=== PATIENT | male | born 1960 | race Caucasian/White ===

== ENCOUNTER → 2019-02-02 | Outpatient (REF) | payer OTHER ==
[2019-02-02 14:52] LABS: % LABILE ALKALINE PHOSPHATASE 51.9 %
== END ==
LOC: M LAB REF 11:44
PROVIDERS: ATTEND Family Medicine
DX: R74.8 Abnormal levels of other serum enzymes (principal)

== ENCOUNTER → 2019-12-11 | Outpatient (CLI) | payer OTHER | LOC: M LABSMTC 10:03 | PROVIDERS: ATTEND Internal Medicine Gastroenterology | DX: Z20.828 Contact with and (suspected) exposure to other viral communicable diseases (principal) ==

== ENCOUNTER 2019-12-12 12:06 | Day surgery (SDC) | payer OTHER ==
[2019-12-12] MEDS ORDERED: CIPROFLOXACIN/D5W 400 MG/200 ML BAG (J0744) As Ordered ONE (12:41)
[2019-12-12] MEDS ORDERED: CIPROFLOXACIN/D5W 400 MG/200 ML BAG (J0744) ONE (12:41)
[2019-12-12] MEDS ORDERED: LIDOCAINE 2% 100MG/5ML SDV (FOR ANES.) As Ordered ONE (12:43)
[2019-12-12] MEDS ORDERED: MIDAZOLAM INJ 2MG/2ML VIAL (J2250 PER 1MG) As Ordered ONE (12:43)
[2019-12-12] MEDS ORDERED: ROCURONIUM BROMIDE 50 MG/5 ML VIAL As Ordered ONE (12:43)
[2019-12-12] MEDS ORDERED: propofoL 200 MG/20 ML VIAL As Ordered ONE (12:43)
[2019-12-12] MEDS ORDERED: ONDANSETRON 4MG/2ML VIAL As Ordered ONE (12:43)
[2019-12-12] MEDS ORDERED: METOCLOPRAMIDE INJ 10MG/2ML VIAL (J2765 PER 1) As Ordered ONE (12:43)
[2019-12-12] MEDS ORDERED: fentaNYL 100 MCG/2 ML INJECTION (J3010) As Ordered ONE ×3 (12:44→15:38)
[2019-12-12] MEDS ORDERED: ISOVUE-300 61% 50ML VIAL As Ordered ONE (12:51)
[2019-12-12] MEDS ORDERED: fentaNYL 100 MCG/2 ML INJECTION (J3010) ONE ×2 (15:09→15:38)
--- NOTE | 2020-01-16 11:26 | ROOR ---
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 Procedure: Pre-Anesthesia Assessment: - Prior to the procedure, a History and Physical was performed, and patient medications and allergies were reviewed. The patient is competent. The risks and benefits of the procedure and the sedation options and risks were discussed with the patient. All questions were answered and informed consent was obtained. Patient identification and proposed procedure were verified by the physician, the nurse and the anesthesiologist in the procedure room. Mental Status Examination: alert and oriented. Airway Examination: normal oropharyngeal airway and neck mobility. Respiratory Examination: clear to auscultation. CV Examination: normal. Prophylactic Antibiotics: The patient does not require prophylactic antibiotics. Prior Anticoagulants: The patient has taken no previous anticoagulant or antiplatelet agents. ASA Grade Assessment: II - A patient with mild systemic disease. After reviewing the risks and benefits, the patient was deemed in satisfactory condition to undergo the procedure. The anesthesia plan was to use monitored anesthesia care (MAC). Immediately prior to administration of medications, the patient was re-assessed for adequacy to receive sedatives. The heart rate, respiratory rate, oxygen saturations, blood pressure, adequacy of pulmonary ventilation, and response to care were monitored throughout the procedure. The physical status of the patient was re-assessed after the procedure. The Duodenoscope was introduced through the mouth, and advanced to the duodenum and used to inject contrast into the bile duct. The ERCP was accomplished without difficulty. The patient tolerated the procedure well. Findings: The director of graduate admissions film was normal. The esophagus was successfully intubated under direct vision. The scope was advanced from the mouth to the duodenum. The pharynx, larynx and associated structures, as well as the upper GI tract, were normal. The scope was passed under direct vision through the upper GI tract. The major papilla was congested. The major papilla was ulcerated. A 0.035 inch x 260 cm straight Hydra Jagwire was passed into the biliary tree. The bile duct was then deeply cannulated over the guidewire. Contrast was injected. I personally interpreted the bile duct images. Ductal flow of contrast was adequate. Image quality was adequate. Contrast extended to the entire biliary tree. The main bile duct, left main hepatic duct and right main hepatic duct were diffusely dilated, with extrinsic compression causing an obstruction. The largest diameter was 15 mm. The lower third of the main bile duct was completely obstructed by what appeared to be a mass. Cells for cytology were obtained by brushing in the lower third of the main bile duct. Biopsy was performed in the ampulla through the ERCP scope with a cold forceps for histology. One 10 mm by 6 cm covered metal stent was placed into the common bile duct. Bile, necrotic tissue and sludge flowed through the stent. The stent was in good position. Occlusion cholangiogram at the end of the procedure did not show any residual filling defects. Pancreatic duct was neither cannulated nor opacified. Impression: - The major papilla appeared congested. - The major papilla appeared to be ulcerated. - Biopsy was performed in the ampulla. - A biliary tract obstruction secondary to what appeared to be a mass was found in the lower third of the main duct. - The entire main bile duct, left main hepatic duct and right main hepatic duct were dilated, with extrinsic compression causing an obstruction. - Cells for cytology obtained in the lower third of the main duct. - One covered metal stent was placed into the common bile duct. Recommendation: - The patient will be observed post-procedure, until all discharge criteria are met. - Patient has a contact number available for emergencies. The signs and symptoms of potential delayed complications were discussed with the patient. Return to normal activities tomorrow. Written discharge instructions were provided to the patient. - Avoid aspirin and nonsteroidal anti-inflammatory medicines. - Clear liquid diet for 1 day, then advance as tolerated to low fat diet. - Await cytology results and await path results. - Refer to an oncologist as previously scheduled. - Telephone GI clinic for pathology results in 1 week. - Return to GI clinic if persistent symptoms or new symptoms. - Return to primary care physician. Lorenzo Jean Baptiste MD Lorenzo Jean Baptiste MD 12/12/2019 2:51:42 PM Electronically signed by Lorenzo Jean Baptiste MD Number of Addenda: 0 Note Initiated On: 12/12/2019 1:14 PM Estimated Blood Loss: Estimated blood loss was minimal.
--- NOTE | 2020-01-29 07:55 | REP ---
ERCP: 46 seconds of fluoroscopy time is reported. FINDINGS: A sequence of 25 last image hold fluoroscopically obtained spot radiographs of the right upper quadrant of the abdomen document endoscopic cannulation, contrast injection and stenting of the common bile duct. MTDD
== END 2019-12-12 16:25 | disposition home or self-care (01) ==
LOC: M SDC 12:06
PROVIDERS: ATTEND Internal Medicine Gastroenterology
DX: K83.1 Obstruction of bile duct (principal); C25.0 Malignant neoplasm of head of pancreas; K83.8 Other specified diseases of biliary tract
CPT/HCPCS: 43261; 43274; 74330; 88108; 88307; C1876; J0744; J2250; J2405; J2765; J3010; Q9967

== ENCOUNTER → 2019-12-21 | Outpatient (CLI) | payer OTHER ==
[~2019-12-21] MED LIST: ISOVUE-370 76% 100ML VIAL As Ordered ONE
--- NOTE | 2020-01-29 07:56 | REP ---
HISTORY: Pancreatic carcinoma. COMPARISON: No comparison chest CT study. Comparison abdomen and pelvis CT study 12/06/2019, [facility]. CT CONTRAST DOSE: 75 mL of intravenous Isovue-[address] FINDINGS: The lung carrillo are clear. No pulmonary nodule or mass lesion is observed. No infiltrate or atelectasis is seen. No pleural or pericardial effusion is apparent. No hilar or mediastinal mass or adenopathy is seen. There is Postprocedure pneumobilia noted in the right upper quadrant of the abdomen. There are multiple hepatic metastatic nodules scattered throughout the liver, which are similar in appearance to the 12/06/2019 images from [facility]. These are predominantly small. There is retroperitoneal and retrocrural, as well as celiac axis lymphadenopathy visible in the upper abdomen. Bone window settings show no bony destructive lesion. A biliary stent is noted in the right upper quadrant. IMPRESSION: No evidence of intrathoracic metastatic disease. Metastatic disease is seen in the liver and in the upper abdominal and retroperitoneal lymph nodes. MTDD
== END ==
LOC: M RAD 09:50
PROVIDERS: ATTEND Internal Medicine Medical Oncology
DX: C25.9 Malignant neoplasm of pancreas, unspecified (principal)
CPT/HCPCS: 71260; Q9967

== ENCOUNTER 2020-04-08 20:13 | Inpatient (IN) | payer OTHER ==
[~2020-04-08] VITALS: Ht 182.9 cm; Wt 49.5 kg
[2020-04-08] MEDS ORDERED: SCOPOLAMINE 1MG TRANSDERMAL PATCH TOP PRN (21:00)
--- NOTE | 2020-04-08 22:05 | HPEPDOC ---
[facility] Medical History & Physical Date of Admission Apr 08, 2020 Date of Service: Apr 08, 2020 History and Physical Chief complaint: Presented to the hospital with intractable nausea and vomiting History of present illness: Patient is a 6-year-old male with a history of metastatic pancreatic adenocarcinoma and has been on comfort measures since March 06 while at home. Patient has been having intractable nausea and vomiting that is uncontrolled with Zofran by mouth and per rectum. Patient remains comfort measures and has been partial hospital for symptomatically control of his nausea and vomiting. Discussed with patient and his at the bedside. Currently, would like to remain comfort measures and have his symptoms controlled here. Past Medical History: Metastatic pancreatic adenocarcinoma Past Surgical History: Hernia operation Allergies: See below Medications: See below Family History: - Reviewed and noncontributory Social History: - Denies the use of tobacco or illicit drugs; reports social alcohol use. The past - Lives Review of Systems: 10 point review of systems complete, all negative otherwise stated in HPI Physical exam: - Vitals (Not completed) - General: Lying in bed, No acute distress, appears drowsy - Full exam not completed Labs: See below Imaging: See below EKG: See below Assessment and Plan: Comfort measures Intractable nausea and vomiting Metastatic pancreatic adenocarcinoma Assessment and Plan: - Will continue with comfort measures only at this time - Will continue with pain control, anxiety relief and IV antiemetics - Will adjust therapy based on symptom control Code status: - DNR / DNI - GEOSCIENCE SPECIALIST Laboratory Data Labs 24H Laboratory Tests 2 04/08/20 21:23: Allergies Coded Allergies: No Known Allergies (Unverified , 04/08/20) FLOYD PITTS MD Apr 08, 2020 22:05
[2020-04-08] MEDS: ONDANSETRON 4MG/2ML VIAL IV PRN (22:39)
[2020-04-08] MEDS: MORPHINE 2 MG/ML 1ML VIAL (J2270) IV PRN (22:39)
[2020-04-08] MEDS ORDERED: METH5TA PO (23:19)
[2020-04-08] MEDS ORDERED: MORP1SOL PO (23:20)
[2020-04-08] MEDS ORDERED: DEXA4TA PO (23:20)
[2020-04-08] MEDS ORDERED: HYOS0.1214 PO (23:20)
[2020-04-08] MEDS ORDERED: SCOP1PAT2 TOP (23:20)
[2020-04-08] MEDS ORDERED: ALPR0.5T3 PO (23:20)
[2020-04-08] MEDS ORDERED: METO10TA2 PO (23:20)
[2020-04-08] MEDS ORDERED: ONDA8TAB8 PO (23:20)
[2020-04-08] MEDS ORDERED: PROC25SU24 PR (23:20)
[2020-04-09] MEDS: LORazepam 2 MG/ML VIAL IV PRN ×2 (01:42→13:51)
[2020-04-09] MEDS: ONDANSETRON 4MG/2ML VIAL IV PRN ×2 (05:50→13:51)
[2020-04-09] MEDS: MORPHINE 2 MG/ML 1ML VIAL (J2270) IV PRN ×3 (07:51→19:42)
[2020-04-09] MEDS ORDERED: PROMETHAZINE INJ 25 MG/ML VIAL (J2550) IV PRN (08:00)
[2020-04-09] MEDS ORDERED: FLUBLOK(EGG FREE)(QUAD)INFLUENZA VACC 0.5ML SYRINGE 18YRS & OLDER IM ONE (09:00)
[2020-04-09] MEDS ORDERED: PROCHLORPERAZINE 10MG/2ML VIAL (J0780 PER 1) IV PRN ×2 (09:15→14:31)
[2020-04-09] MEDS: METOCLOPRAMIDE INJ 10MG/2ML VIAL (J2765 PER 1) IV SCH ×3 (09:40→21:38)
--- NOTE | 2020-04-09 12:45 | IPNPDOC ---
Date Seen The patient was seen on 04/09/20. Progress Note SUBJECTIVE: Pain medications were changed according to Hospice nurse, pharmacy. Appeared very lethargic but responsive with stimulation. His was at the bedside. Hospice is involved. OBJECTIVE: PHYSICAL EXAMINATION- full exam is not completed: VITAL SIGNS: Not taking due to CRATE OPENER status GENERAL: Lethargic, responsive to loud verbal stimulation LABORATORY DATA, IMAGING STUDIES, MICROBIOLOGY: No longer doing labs ASSESSMENT: 60 yr old male with metastatic pancreatic adenocarcinoma admitted for intractable N/V, uncontrolled pain on CRATE OPENER. PLAN: C/w CRATE OPENER status. Hospice has seen and made suggestions on pain, antianxiety and antiemetic regimen changes. Hospice to follow while inpatient. DISPOSITION: Overall poor prognosis. His was updated today by Hospice that he will unlikely return home due to how much he has decompensated. Hospice is following closely. VS, I&O, 24H, Fishbone Vital Signs/I&O Vital Signs Date Time Temp Pulse Resp B/P (MAP) Pulse Ox O2 Delivery O2 Flow Rate FiO2 04/09/20 07:51 14 I&O- Last 24 Hours up to 6 AM 04/09/20 06:00 Intake Total 0 ml Output Total 0 ml Balance 0 ml Laboratory Data 24H LABS Laboratory Tests 2 04/08/20 21:23: Coronavirus (COVID-19)(PCR) NEGATIVE Reba Cordova MD Apr 09, 2020 12:45
[2020-04-09] MEDS: MORPHINE 4 MG/ML 1ML VIAL/SYRINGE (J2270) IV SCH ×3 (13:00→21:39)
[2020-04-09] MEDS ORDERED: LORazepam 2 MG/ML VIAL As Ordered ONE ×2 (13:44→16:46)
[2020-04-09] MEDS: dexameTHASONE 4 MG/ML 1ML VIAL (J1100 PER 1MG) IV SCH (13:51)
[2020-04-09] MEDS: LORazepam 2 MG/ML VIAL IV SCH ×2 (16:54→21:39)
[2020-04-09] MEDS ORDERED: dexameTHASONE 4 MG/ML 1ML VIAL (J1100 PER 1MG) IV ONE (17:00)
[2020-04-10] MEDS: PROCHLORPERAZINE 10MG/2ML VIAL (J0780 PER 1) IV PRN ×2 (07:47→14:58)
[2020-04-10] MEDS: dexameTHASONE 4 MG/ML 1ML VIAL (J1100 PER 1MG) IV SCH ×2 (08:00→15:00)
[2020-04-10] MEDS: LORazepam 2 MG/ML VIAL IV SCH ×3 (08:01→19:49)
[2020-04-10] MEDS: METOCLOPRAMIDE INJ 10MG/2ML VIAL (J2765 PER 1) IV SCH ×3 (08:01→19:49)
[2020-04-10] MEDS: MORPHINE 4 MG/ML 1ML VIAL/SYRINGE (J2270) IV SCH ×4 (08:02→19:49)
[2020-04-10] MEDS: SCOPOLAMINE 1MG TRANSDERMAL PATCH TOP SCH (08:03)
--- NOTE | 2020-04-10 10:48 | IPNPDOC ---
Date Seen The patient was seen on 04/10/20. Progress Note SUBJECTIVE: Morphine and ativan increased due to increased discomfort inbetween receiving doses. Was lethargic but responsive with stimulation this AM. His son was at bedside. OBJECTIVE: PHYSICAL EXAMINATION- full exam is not completed: VITAL SIGNS: Not taking due to STUDY ABROAD ADVISOR status GENERAL: Lethargic, unresponsive to loud verbal stimulation after receiving pain medications. LABORATORY DATA, IMAGING STUDIES, MICROBIOLOGY: No longer doing labs ASSESSMENT: 60 yr old male with metastatic pancreatic adenocarcinoma admitted for intractable N/V, uncontrolled pain on STUDY ABROAD ADVISOR. CURRENT DIAGNOSES: 1. Metastatic pancreatic adenocarcinoma to liver, upper abd, retroperitoneal LN 2. Failure to thrive 3. Pain 2/2 to metastatic disease 4. Intractable n/v 2/2 to metastatic disease PLAN: C/w STUDY ABROAD ADVISOR status. Hospice has seen and made suggestions on pain, antianxiety and antiemetic regimen changes. Adjusted pain medications further due to increased pain, nausea. ALC status placed today DISPOSITION: Overall poor prognosis. Unlikely that patient will return home due to how much he has decompensated. Hospice is following. VS, I&O, 24H, Fishbone Vital Signs/I&O Vital Signs Date Time Temp Pulse Resp B/P (MAP) Pulse Ox O2 Delivery O2 Flow Rate FiO2 04/10/20 08:02 18 Room Air I&O- Last 24 Hours up to 6 AM 04/10/20 05:59 Intake Total 0 ml Output Total 0 ml Balance 0 ml Current Medications Current Medications Medications (Trade) Dose Ordered Sig/Bony Route PRN Reason Start Time Stop Time Status Last Admin Dose Admin Dexamethasone (Decadron) 8 mg Q24H IV 04/09/20 12:00 04/09/20 13:51 Dexamethasone (Decadron) 8 mg Q24H IV 04/10/20 08:00 04/10/20 08:00 Home Med (Med Rec Complete!) ASDIRECTED XX 04/08/20 23:30 04/08/20 23:22 DC Lorazepam (Ativan) 1 mg Q2HP PRN IV ANXIETY 04/08/20 21:00 04/10/20 10:38 DC 04/09/20 13:51 Lorazepam (Ativan) 1 mg TID IV 04/09/20 16:00 04/10/20 08:01 Lorazepam (Ativan) 2 mg Q2HP PRN IV ANXIETY 04/10/20 10:45 UNV Metoclopramide HCl (REGLAN INJection) 10 mg TID IV 04/09/20 09:00 04/10/20 08:01 Morphine Sulfate (Morphine Sulfate Inj) 2 mg Q2H PRN IV SEVERE PAIN (PS 8-10) 04/08/20 21:00 04/09/20 09:14 DC 04/09/20 07:51 Morphine Sulfate (Morphine Sulfate Inj) 3 mg Q2H PRN IV SEVERE PAIN (PS 8-10) 04/09/20 11:00 04/10/20 10:38 DC 04/09/20 19:42 Morphine Sulfate (Morphine Sulfate Inj) 3 mg QID IV 04/09/20 13:00 04/10/20 10:38 DC 04/10/20 08:02 Morphine Sulfate (Morphine Sulfate Inj) 4 mg Q2H PRN IV SEVERE PAIN (PS 8-10) 04/10/20 11:00 UNV Morphine Sulfate (Morphine Sulfate Inj) 4 mg QID IV 04/10/20 13:00 UNV Ondansetron HCl (ZOFRAN INJection) 4 mg Q6HP PRN IV NAUSEA OR VOMITING 04/08/20 21:00 04/09/20 13:51 Prochlorperazine (Compazine) 10 mg Q4HP PRN IV VOMITING 04/09/20 14:32 04/10/20 07:47 Prochlorperazine (Compazine) 10 mg Q8HP PRN IV VOMITING 04/09/20 14:31 04/09/20 14:32 DC Prochlorperazine (Compazine) 25 mg Q8HP PRN IV VOMITING 04/09/20 09:15 04/09/20 14:31 DC Promethazine HCl (PHENERGAN INJection) 25 mg Q8HP PRN IV NAUSEA OR VOMITING 04/09/20 08:00 04/09/20 09:14 DC Scopolamine (Scopolamine) 1 mg Q2D TOP 04/10/20 09:00 04/10/20 08:03 Scopolamine (Scopolamine) 1 mg Q3DP PRN TOP EXCESSIVE SECRETIONS 04/08/20 21:00 04/09/20 09:13 DC Allergies Coded Allergies: No Known Allergies (Unverified , 04/08/20) Reba Cordova MD Apr 10, 2020 10:48
[2020-04-10] MEDS: LORazepam 2 MG/ML VIAL IV PRN ×3 (11:01→21:56)
[2020-04-10] MEDS: ONDANSETRON 4MG/2ML VIAL IV PRN (11:01)
[2020-04-10] MEDS: MORPHINE 2 MG/ML 1ML VIAL (J2270) IV PRN ×3 (11:03→21:56)
[2020-04-11] MEDS: PROCHLORPERAZINE 10MG/2ML VIAL (J0780 PER 1) IV PRN ×3 (00:37→14:31)
[2020-04-11] MEDS: LORazepam 2 MG/ML VIAL IV PRN ×8 (00:38→19:47)
[2020-04-11] MEDS: MORPHINE 2 MG/ML 1ML VIAL (J2270) IV PRN ×7 (02:58→19:47)
[2020-04-11] MEDS: dexameTHASONE 4 MG/ML 1ML VIAL (J1100 PER 1MG) IV SCH ×2 (08:29→11:42)
[2020-04-11] MEDS: MORPHINE 4 MG/ML 1ML VIAL/SYRINGE (J2270) IV SCH ×4 (09:00→21:00)
[2020-04-11] MEDS: LORazepam 2 MG/ML VIAL IV SCH ×3 (09:00→21:00)
[2020-04-11] MEDS: METOCLOPRAMIDE INJ 10MG/2ML VIAL (J2765 PER 1) IV SCH ×3 (09:00→21:00)
[2020-04-11] MEDS: ONDANSETRON 4MG/2ML VIAL IV PRN ×2 (11:41→17:36)
[2020-04-12] MEDS: MORPHINE 2 MG/ML 1ML VIAL (J2270) IV PRN ×5 (02:54→19:15)
[2020-04-12] MEDS: MORPHINE 4 MG/ML 1ML VIAL/SYRINGE (J2270) IV SCH ×4 (08:22→21:28)
[2020-04-12] MEDS: METOCLOPRAMIDE INJ 10MG/2ML VIAL (J2765 PER 1) IV SCH ×3 (08:22→21:28)
[2020-04-12] MEDS: LORazepam 2 MG/ML VIAL IV PRN ×6 (08:22→19:15)
[2020-04-12] MEDS: dexameTHASONE 4 MG/ML 1ML VIAL (J1100 PER 1MG) IV SCH ×2 (08:22→12:35)
[2020-04-12] MEDS: LORazepam 2 MG/ML VIAL IV SCH ×3 (09:00→21:29)
[2020-04-12] MEDS: SCOPOLAMINE 1MG TRANSDERMAL PATCH TOP SCH (09:04)
[2020-04-13] MEDS: MORPHINE 2 MG/ML 1ML VIAL (J2270) IV PRN ×7 (00:12→18:32)
[2020-04-13] MEDS: LORazepam 2 MG/ML VIAL IV PRN ×7 (00:13→18:32)
[2020-04-13] MEDS: ONDANSETRON 4MG/2ML VIAL IV PRN (02:22)
[2020-04-13] MEDS: METOCLOPRAMIDE INJ 10MG/2ML VIAL (J2765 PER 1) IV SCH ×2 (09:10→16:04)
[2020-04-13] MEDS: LORazepam 2 MG/ML VIAL IV SCH ×2 (09:10→16:00)
[2020-04-13] MEDS: dexameTHASONE 4 MG/ML 1ML VIAL (J1100 PER 1MG) IV SCH ×2 (09:11→12:23)
[2020-04-13] MEDS: MORPHINE 4 MG/ML 1ML VIAL/SYRINGE (J2270) IV SCH ×3 (09:11→16:05)
--- NOTE | 2020-04-14 17:41 | DS.PDOC ---
Discharge Summary General Date of Admission Apr 08, 2020 at 21:04 Date of Discharge 04/13/20 Attending Physician: Reba Cordova MD Discharge Summary THIS IS A SUMMARY HPI: Patient is a 60-year-old male with a history of metastatic pancreatic adenocarcinoma that has been on home Hospice, comfort measures since March 06, 2020. He was brought into the ER on 04/08/20 due to having intractable nausea and vomiting that is uncontrolled with Zofran by mouth and per rectum. His family was informed that patient likely will be needing IV comfort pain meds, as oral has not been feasible and it has not been keeping him comfortable. The patient was admitted as RESEARCH ASST for end of life care. HOSPITAL COURSE: Hospice was consulted to help with pain medications during this stay. Patient was started on morphine ATC and PRN, ativan ATC and PRN along with several antiemetics, scopalamine. His medications did need adjusting one time to help ease his comfort. ON 04/13/20 patient was found to not have a pulse. Dr. Duff pronounced TOB 19:14. LABORATORY DATA, IMAGING STUDIES, MICROBIOLOGY: No longer doing labs ASSESSMENT: 60 yr old male with metastatic pancreatic adenocarcinoma admitted for intractable N/V, uncontrolled pain on RESEARCH ASST. DIAGNOSES at time of : 1. Metastatic pancreatic adenocarcinoma to liver, upper abd, retroperitoneal LN 2. Failure to thrive 3. Pain 2/2 to metastatic disease 4. Intractable n/v 2/2 to metastatic disease 5. Protein calorie malnutrition, severe TIME SPENT ON DISCHARGE: Less than 30 minutes. Vital Signs/I&Os Vital Signs Date Time Temp Pulse Resp B/P (MAP) Pulse Ox O2 Delivery O2 Flow Rate FiO2 04/12/20 19:25 16 Room Air I&O- Last 24 Hours up to 6 AM 04/14/20 06:00 Intake Total 0 ml Output Total 0 ml Balance 0 ml Discharge Medications Scheduled Dexamethasone (Dexamethasone) 4 Mg Tablet, 8 MG PO BID, (Reported) Methadone HCl (Methadone HCl) 5 Mg Tablet, 5 MG PO Q8H, (Reported) Metoclopramide HCl (Metoclopramide HCl) 10 Mg Tablet, 10 MG PO TID, (Reported) Scopolamine (Transderm-Scop) 1 Each Patch.td.3, 1.5 MG TOP Q2D, (Reported) Scheduled PRN Alprazolam (Alprazolam) 0.5 Mg Tablet, 0.5 MG PO Q2H PRN for ANXIETY, (Reported) Hyoscyamine Sulfate (Hyoscyamine Sulfate) 0.125 Mg Tab.rapdis, 0.125 MG PO Q4H PRN for TERMINAL SECRETIONS, (Reported) Morphine Sulfate (Morphine Sulfate Concentrate) 100 Mg/5 Ml Solution, 0.5 ML PO Q2H PRN for PAIN/DYSPNEA, (Reported) Ondansetron (Ondansetron Odt) 8 Mg Tab.rapdis, 8 MG PO Q6H PRN for NAUSEA, (Reported) Prochlorperazine (Prochlorperazine) 25 Mg Supp.rect, 25 MG [place] Q8H PRN for NAUSEA OR VOMITING, (Reported) Allergies Coded Allergies: No Known Allergies (Unverified , 04/08/20) Reba Cordova MD Apr 14, 2020 17:41
== END 2020-04-13 19:14 | disposition expired | DRG 951 ==
LOC: M MS5PR 21:04
PROVIDERS: ADMIT Internal Medicine; ATTEND Internal Medicine
DX: Z51.5 Encounter for palliative care (principal); E43 Unspecified severe protein-calorie malnutrition; C25.9 Malignant neoplasm of pancreas, unspecified; C78.7 Secondary malignant neoplasm of liver and intrahepatic bile duct; C78.6 Secondary malignant neoplasm of retroperitoneum and peritoneum; C77.2 Secondary and unspecified malignant neoplasm of intra-abdominal lymph nodes; C79.89 Secondary malignant neoplasm of other specified sites; R11.2 Nausea with vomiting, unspecified; R62.7 Adult failure to thrive; Z66 Do not resuscitate; G89.3 Neoplasm related pain (acute) (chronic); Z20.828 Contact with and (suspected) exposure to other viral communicable diseases